=== PATIENT | male | born 1970 | race Caucasian/White ===

== ENCOUNTER 2020-10-07 23:26 | Emergency (ER) | payer OTHER ==
[~2020-10-07] VITALS: Ht 172.7 cm; Wt 77.1 kg
[~2020-10-07 23:26] MED LIST: VYTORIN 10-20 M1 TAB
[2020-10-08] MEDS ORDERED: BENADRYL50 MG PO (04:23)
[2020-10-08] MEDS ORDERED: MEDROLPACK PO (04:23)
== END 2020-10-08 05:01 | disposition home or self-care (01) ==
LOC: ER 23:26
DX: R21 Rash and other nonspecific skin eruption (principal); T78.49XA Other allergy, initial encounter